=== PATIENT | female | born 1960 | race Caucasian/White ===

== ENCOUNTER 2019-04-24 10:41 | Emergency (ER) | payer BC ==
[~2019-04-24] VITALS: Ht 152.4 cm; Wt 59.1 kg
[2019-04-24] MEDS ORDERED: TRAZ-252 (11:13)
[2019-04-24] MEDS ORDERED: LEVO25TA5 (11:13)
[2019-04-24] MEDS ORDERED: DULO1CAP5 (11:13)
[2019-04-24] MEDS ORDERED: OMEP-218 (11:13)
[2019-04-24] MEDS ORDERED: NS 1,000 ML IV ONE (11:45)
[2019-04-24] MEDS ORDERED: PROMETHAZINE INJ 25 MG/ML VIAL (J2550) IV ONE (11:45)
[2019-04-24] MEDS ORDERED: diphenhydrAMINE INJ 50MG/ML VIAL (J1200) IV ONE (11:45)
--- NOTE | 2019-04-24 12:07 | REP ---
REASON: Headache. PRIORS: None. TECHNIQUE: 4.5 mm contiguous transaxial sections were obtained from the skull base to the cerebral convexities with thin cuts through the posterior fossa without the administration of intravenous contrast. FINDINGS: The ventricles and sulci are consistent with the patient's age. There are no extra-axial fluid collections. There is no mass effect. The deep cerebral white matter is consistent with the patient's age. The orbital and petrous structures , cerebellopontine angles, and posterior fossa are unremarkable. The sella turcica, cavernous, and paracavernous structures are essentially unremarkable. The visualized portions of the paranasal sinuses and mastoid air cells are clear. Images of the skull base show no gross abnormality. IMPRESSION: Essentially unremarkable CT examination of the brain. Electronically Signed by Roman Rdz DO 04/24/2019 12:58 P
--- NOTE | 2019-04-24 17:05 | REPVR ---
EXAM: MR Angiogram Head Without Contrast, Arteries EXAM DATE/TIME: 04/24/2019 4:12 PM CLINICAL HISTORY: 59 years old, female; Headache; Additional info: Severe headache TECHNIQUE: Imaging protocol: MR angiogram head without contrast. Exam focused on the arteries. 3D rendering: MIP reconstructed images were created and reviewed. COMPARISON: CT Head without contrast 04/24/2019 11:11 AM FINDINGS: Right internal carotid artery: Unremarkable. Intracranial segment is patent with no significant stenosis. No aneurysm. Right anterior cerebral artery: Unremarkable. No occlusion or significant stenosis. No aneurysm. Right middle cerebral artery: Unremarkable. No occlusion or significant stenosis. No aneurysm. Right posterior cerebral artery: Unremarkable. No occlusion or significant stenosis. No aneurysm. Right vertebral artery: Unremarkable. No occlusion or significant stenosis. No aneurysm. Left internal carotid artery: Unremarkable. Intracranial segment is patent with no significant stenosis. No aneurysm. Left anterior cerebral artery: Unremarkable. No occlusion or significant stenosis. No aneurysm. Left middle cerebral artery: Unremarkable. No occlusion or significant stenosis. No aneurysm. Left posterior cerebral artery: Unremarkable. No occlusion or significant stenosis. No aneurysm. Left vertebral artery: Unremarkable. No occlusion or significant stenosis. No aneurysm. Basilar artery: Unremarkable. No occlusion or significant stenosis. No aneurysm. IMPRESSION: No acute findings. Electronically signed by: Mario Marrero On 04/24/2019 17:04:37 PM
--- NOTE | 2019-04-24 17:06 | REPVR ---
EXAM: MR Head Without Contrast EXAM DATE/TIME: 04/24/2019 4:11 PM CLINICAL HISTORY: 59 years old, female; Other: Headache; Additional info: Severe headache TECHNIQUE: Imaging protocol: MR of the head without contrast. COMPARISON: CT Head without contrast 04/24/2019 11:11 AM FINDINGS: Brain: Scattered foci of T2 lengthening in the periventricular and centrum semiovale white matter not likely clinically significant. Otherwise unremarkable. Ventricles: Normal. No ventriculomegaly. Bones/joints: Unremarkable. Soft tissues: Normal. Sinuses: Normal as visualized. No acute sinusitis. Mastoid air cells: Normal as visualized. No mastoid effusion. Orbits: Unremarkable. IMPRESSION: No acute findings. Electronically signed by: Mario Marrero On 04/24/2019 17:06:32 PM
[2019-04-24 17:19] VITALS: BP 121/77
== END 2019-04-24 17:22 | disposition home or self-care (01) ==
LOC: M ED 10:41
DX: R51 Headache (principal); E07.9 Disorder of thyroid, unspecified; Z79.899 Other long term (current) drug therapy; Z88.8 Allergy status to other drugs, medicaments and biological substances
CPT/HCPCS: 70450; 70544; 70551; 96361; 96374; 96375; 99284; J1200; J3360